=== PATIENT | male | born 1935 | race Caucasian/White ===

== ENCOUNTER 2019-07-17 00:04 | Emergency (ER) | payer OTHER ==
[~2019-07-17] VITALS: Ht 1 cm; Wt 1.0 kg
[2019-07-17] MEDS ORDERED: NOREPINEPHRINE 8 MG/250ML KIT 250 ML IV ONE (00:26)
== END 2019-07-17 12:25 | disposition expired ==
LOC: ER 00:06
DX: I46.9 Cardiac arrest, cause unspecified (principal); I21.3 ST elevation (STEMI) myocardial infarction of unspecified site; E11.22 Type 2 diabetes mellitus with diabetic chronic kidney disease; I12.9 Hypertensive chronic kidney disease with stage 1 through stage 4 chronic kidney disease, or unspecified chronic kidney disease; N18.9 Chronic kidney disease, unspecified; Z86.73 Personal history of transient ischemic attack (TIA), and cerebral infarction without residual deficits; Z95.0 Presence of cardiac pacemaker; Z95.1 Presence of aortocoronary bypass graft
CPT/HCPCS: 31500; 92950; 93005; 99291